=== PATIENT | female | born 2000 | race Caucasian/White ===

== ENCOUNTER 2021-10-10 11:53 | Observation (INO) | payer OTHER ==
[2021-10-10 12:49] LABS: RED BLOOD COUNT 3.72 M/UL (4.00-5.10); WHITE BLOOD COUNT 14.8 K/UL (4.5-11.0)
[2021-10-10 13:10] LABS: BUN/CREATININE RATIO 13 (0-10)
[2021-10-11 06:22] LABS: HEMOGLOBIN 10.1 gm/dl (12.3-15.3); RED BLOOD COUNT 3.43 M/UL (4.00-5.10); WHITE BLOOD COUNT 12.3 K/UL (4.5-11.0)
[2021-10-11 06:43] LABS: BUN/CREATININE RATIO 11 (0-10)
[2021-10-11] MEDS ORDERED: CEPHALEXIN500 M1 PO (09:34)
[2021-10-11] MEDS ORDERED: MACROBID 100 M100 MG PO (09:34)
[2021-10-12] MEDS ORDERED: PRENATABS FA T1 EACH PO (20:23)
[2021-10-12] MEDS ORDERED: ZOLOFT25 MG PO (20:23)
== END 2021-10-11 10:54 | disposition home or self-care (01) ==
LOC: GENOP 11:53 → OB 12:21
PROVIDERS: Obstetrics & Gynecology; ADMIT Obstetrics & Gynecology
DX: O23.03 Infections of kidney in pregnancy, third trimester (principal); Z3A.37 37 weeks gestation of pregnancy
CPT/HCPCS: 36415; 59025; 80048; 80053; 81001; 85025; 87086; 96360; 96361; 96365; 96366; 96367; 96374; 96375; 96376; G0378; J0696; J2270; J7120

== ENCOUNTER 2021-10-12 18:17 | Inpatient (IN) | payer OTHER ==
[~2021-10-12] VITALS: Ht 157.5 cm; Wt 81.6 kg
[~2021-10-12 18:17] MED LIST: CEPHALEXIN500 M1 PO; MACROBID 100 M100 MG PO
[2021-10-12 19:00] LABS: HEMOGLOBIN 10.5 gm/dl (12.3-15.3); RED BLOOD COUNT 3.55 M/UL (4.00-5.10); WHITE BLOOD COUNT 10.4 K/UL (4.5-11.0)
[2021-10-12 19:27] LABS: BUN/CREATININE RATIO 17 (0-10)
[2021-10-12] MEDS ORDERED: ZOLOFT25 MG PO (20:23)
[2021-10-12] MEDS ORDERED: PRENATABS FA T1 EACH PO (20:23)
[2021-10-14] MEDS ORDERED: FERROCITE324 MG PO (00:41)
[2021-10-14] MEDS ORDERED: IBUPROFEN800 MG PO (00:41)
[2021-10-14] MEDS ORDERED: HYDROCODON-ACE1 EAC2 PO (00:41)
[2021-10-14] MEDS ORDERED: COLACE 100MG C100 MG PO (00:41)
[2021-10-14 13:44] LABS: HEMOGLOBIN 8.8 gm/dl (12.3-15.3)
== END 2021-10-15 14:15 | disposition home or self-care (01) | DRG 787 ==
LOC: GENOP 18:17 → OB 20:21
PROVIDERS: Obstetrics & Gynecology; ADMIT Obstetrics & Gynecology
PROC: 4A1HXCZ Monitoring of Products of Conception, Cardiac Rate, External Approach (ICD-10-PCS; 2021-10-12)
PROC: 10907ZC Drainage of Amniotic Fluid, Therapeutic from Products of Conception, Via Natural or Artificial Opening (ICD-10-PCS; 2021-10-14)
PROC: 10D00Z1 Extraction of Products of Conception, Low, Open Approach (ICD-10-PCS; principal; 2021-10-14 00:52)
DX: O23.03 Infections of kidney in pregnancy, third trimester (principal); D62 Acute posthemorrhagic anemia; O72.1 Other immediate postpartum hemorrhage; Z37.0 Single live birth; Z20.822 Contact with and (suspected) exposure to COVID-19; Z3A.37 37 weeks gestation of pregnancy; Z28.310 Unvaccinated for COVID-19; O99.334 Smoking (tobacco) complicating childbirth; F17.210 Nicotine dependence, cigarettes, uncomplicated; Z82.5 Family history of asthma and other chronic lower respiratory diseases; Z84.89 Family history of other specified conditions; O13.4 Gestational [pregnancy-induced] hypertension without significant proteinuria, complicating childbirth; O99.02 Anemia complicating childbirth; O62.1 Secondary uterine inertia
CPT/HCPCS: 36415; 80053; 82570; 82800; 84156; 85014; 85018; 85025; C9113; J0595; J0690; J2250; J2274; J2370; J2405; J2590; J7120